=== PATIENT | male | born 1990 | race Caucasian/White ===

== ENCOUNTER 2016-12-02 19:27 | Emergency (ER) | payer SELFPAY ==
--- NOTE | 2016-12-02 19:48 | ER Document Report ---
ED Medical Screen (RME) - General Stated Complaint: FALL/ANKLE PAIN Time seen by provider: 19:41 Mode of Arrival: Ambulatory Information source: Patient Notes: 26-year-old male twisted his left ankle in a loose board this morning. He walked on it today but as the day increased he had more of a pinching pain and inability to walk on it. TRAVEL OUTSIDE OF THE [place] IN LAST 30 DAYS: No - Related Data Allergies/Adverse Reactions: trazodone Allergy (Verified 12/02/16 19:48) Past Medical History - Past Medical History Cardiac Medical History: Reports: Hx Hypertension Neurological Medical History: Reports: Hx Seizures Psychiatric Medical History: Reports: Hx Attention Deficit Hyperactivity Disorder, Hx Bipolar Disorder, Hx Depression - Immunizations Immunizations up to date: Yes Hx Diphtheria, Pertussis, Tetanus Vaccination: Yes - LAST DOSE AT AGE 19 Y.O.
[2016-12-02] MEDS ORDERED: HYDROCODONE/ACETAMINOPHEN 5-325 MG TABLET PO ONE (20:32)
--- NOTE | 2016-12-02 20:33 | ER Document Report ---
HPI - HPI Patient complains to provider of: ankle injury Onset: This morning Onset/Duration: Sudden Quality of pain: Achy Pain Level: 5 Context: Patient states he was running and twisted his left ankle this morning. Patient was wearing high top shoes at the time. Patient complains of continued ankle pain throughout the day. Associated Symptoms: Other - Left ankle pain Exacerbated by: Standing, Movement, Walking Relieved by: Denies Similar symptoms previously: Yes Recently seen / treated by doctor: No - ROS ROS below otherwise negative: Yes Systems Reviewed and Negative: Yes All other systems reviewed and negative - GASTROINTESTINAL Gastrointestinal: DENIES: Nausea, Patient vomiting - REPRODUCTIVE Reproductive: DENIES: : - MUSCULOSKELETAL Musculoskeletal: REPORTS: Extremity pain - Left ankle, Swelling - DERM Skin Color: Normal, [place] Skin Problems: None Past Medical History - General Information source: Patient - Social History Smoking Status: Current Every Day Smoker Frequency of alcohol use: None Drug Abuse: None Occupation: self-employed Lives with: Family Family History: Reviewed & Not Pertinent Patient has suicidal ideation: No Patient has homicidal ideation: No Neurological Medical History: Reports: Hx Seizures Psychiatric Medical History: Reports: Hx Attention Deficit Hyperactivity Disorder, Hx Bipolar Disorder, Hx Depression Surgical Hx: Negative - Immunizations Immunizations up to date: Yes Hx Diphtheria, Pertussis, Tetanus Vaccination: Yes - LAST DOSE AT AGE 19 Y.O. Vertical Provider Document - CONSTITUTIONAL Agree With Documented VS: Yes Exam Limitations: No Limitations General Appearance: WD/WN, No Apparent Distress - INFECTION CONTROL TRAVEL OUTSIDE OF THE [place] IN LAST 30 DAYS: No - HEENT HEENT: Atraumatic, Normocephalic - NECK Neck: Normal Inspection - RESPIRATORY Respiratory: No Respiratory Distress - CARDIOVASCULAR Pulses: Normal: Dorsalis pedis - BACK Back: Normal Inspection - MUSCULOSKELETAL/EXTREMETIES Musculoskeletal/Extremeties: MAEW, Tender - Left ankle tenderness over lateral malleolar area, Edema - 1+ left lateral malleolar area - NEURO Level of Consciousness: Awake, Alert, Appropriate Motor/Sensory: No Motor Deficit, No Sensory Deficit - DERM Integumentary: Warm, Dry Course - Diagnostic Test Radiology reviewed: Image reviewed, Reports reviewed Procedures - Immobilization Left Ankle Pre-Proc Neuro Vasc Exam: Normal Immobilizer type: Ankle stirrup Performed by: PCT Post-Proc Neuro Vasc Exam: Normal Alignment checked and good: Yes Discharge - Discharge Clinical Impression: Left ankle sprain Qualifiers: Encounter type: initial encounter Involved ligament of ankle: unspecified ligament Qualified Code(s): S93.402A - Sprain of unspecified ligament of left ankle, initial encounter Condition: Stable Disposition: HOME, SELF-CARE Instructions: Use of Crutches ([facility]), Oral Narcotic Medication ([facility]), Sprained Ankle ([facility]), Ankle Stirrup Splint ([facility]), Ice & Elevation ([facility]) Additional Instructions: Return immediately for any new or worsening symptoms Followup with your primary care provider, call tomorrow to make a followup appointment Weightbearing as tolerated Follow-up with orthopedic Dr. for any continued pain or problems Prescriptions: Hydrocodone/Acetaminophen [[place] 5-325 Tablet] 1 each PO Q4 PRN #15 tablet PRN Reason: Referrals: [facility] [Provider Group] - Follow up as needed [facility] [Provider Group] - Follow up as needed [facility] [Provider Group] - Follow up as needed
[2016-12-02 21:34] VITALS: BP 137/81
== END 2016-12-02 21:33 | disposition home or self-care (01) ==
LOC: ER 19:27
DX: S93.402A Sprain of unspecified ligament of left ankle, initial encounter (principal); X50.1XXA Overexertion from prolonged static or awkward postures, initial encounter; F17.200 Nicotine dependence, unspecified, uncomplicated
CPT/HCPCS: 99283; 73610; 73630; L1902

== ENCOUNTER 2017-05-14 17:48 | Emergency (ER) | payer OTHER ==
--- NOTE | 2017-05-14 18:28 | RADIOLOGY REPORT (SQ) ---
EXAM DESCRIPTION: KUB/ABDOMEN (SINGLE VIEW) COMPLETED DATE/TIME: 05/14/2017 6:18 pm REASON FOR STUDY: FOREIGN BODY COMPARISON: None. NUMBER OF VIEWS: One view. TECHNIQUE: Supine radiographic image of the abdomen acquired. LIMITATIONS: None. FINDINGS: BOWEL GAS PATTERN: Normal bowel gas pattern. No dilated loops. CALCIFICATIONS: No suspicious calcifications. SOFT TISSUES: No gross mass or suggestion of organomegaly. HARDWARE: None in the abdomen. BONES: No acute fracture. No worrisome bone lesions. OTHER: There are radiopaque densities overlying the right and left mid abdomen which could conceivabl y be external to the patient but could also represent ingested radiopaque foreign bodies. Clinical c orrelation is recommended. IMPRESSION: Nonspecific intestinal bowel gas pattern. Possible ingested radiopaque foreign bodies a s noted above TECHNICAL DOCUMENTATION: JOB ID: [id number]- All Rights Reserved
--- NOTE | 2017-05-14 18:28 | RADIOLOGY REPORT (SQ) ---
EXAM DESCRIPTION: CHEST SINGLE VIEW COMPLETED DATE/TIME: 05/14/2017 6:18 pm REASON FOR STUDY: foreign body COMPARISON: 08/25/2014 EXAM PARAMETERS: NUMBER OF VIEWS: One view. TECHNIQUE: Single frontal radiographic view of the chest acquired. RADIATION DOSE: NA LIMITATIONS: None. FINDINGS: LUNGS AND PLEURA: No opacities, masses or pneumothorax. No pleural effusion. MEDIASTINUM AND HILAR STRUCTURES: No masses. Contour normal. HEART AND VASCULAR STRUCTURES: Heart normal in size. Normal vasculature. BONES: No acute findings. HARDWARE: None in the chest. OTHER: No radiopaque foreign body is present. IMPRESSION: NO ACUTE RADIOGRAPHIC FINDING IN THE CHEST. TECHNICAL DOCUMENTATION: JOB ID: [id number]
--- NOTE | 2017-05-14 19:28 | ER Document Report ---
ED General - General Chief Complaint: Psych Problem Stated Complaint: POSSIBLE SWALLOWED FOREIGN OBJECT Time Seen by Provider: 05/14/17 18:38 Mode of Arrival: Medic Information source: Patient, Law Enforcement Notes: 26-year-old male who presents from senior care after ingesting metallic foreign bodies admits to abdominal pain. Patient admits to suicidal ideations. States he ingested metallic pieces often. He has been sent to [facility] for previous ingestion As he ingested to metallic weights from fishing supplies as well as an eyeglass TRAVEL OUTSIDE OF THE [place] IN LAST 30 DAYS: No - HPI Onset: Other - 1 PM Onset/Duration: Sudden Quality of pain: Achy Severity: Mild Pain Level: 1 Associated symptoms: Other Exacerbated by: Denies Relieved by: Denies Similar symptoms previously: Yes Recently seen / treated by doctor: Yes - Related Data Allergies/Adverse Reactions: trazodone Allergy (Verified 05/14/17 18:44) Past Medical History - Social History Smoking Status: Never Smoker Cigarette use (# per day): No Chew tobacco use (# tins/day): No Smoking Education Provided: No Family History: Reviewed & Not Pertinent - Past Medical History Cardiac Medical History: Reports: Hx Hypertension Neurological Medical History: Reports: Hx Seizures Psychiatric Medical History: Reports: Hx Attention Deficit Hyperactivity Disorder, Hx Bipolar Disorder, Hx Depression Surgical Hx: Negative - Immunizations Immunizations up to date: Yes Hx Diphtheria, Pertussis, Tetanus Vaccination: Yes - LAST DOSE AT AGE 19 Y.O. Review of Systems - Review of Systems Notes: REVIEW OF SYSTEMS: CONSTITUTIONAL : Denies fever, chills, or sweats. Denies recent illness. EENT: Denies eye, ear, throat, or mouth pain or symptoms. Denies nasal or sinus congestion or discharge. Denies throat, tongue, or mouth swelling or difficulty swallowing. CARDIOVASCULAR: Denies chest pain. Denies palpitations or racing or irregular heart beat. Denies ankle edema. RESPIRATORY: Denies cough, cold, or chest congestion. Denies shortness of breath, difficulty breathing, or wheezing. GASTROINTESTINAL: Abdominal pain GENITOURINARY: Denies difficulty urinating, painful urination, burning, frequency, blood in urine, or discharge. MUSCULOSKELETAL: Denies back or neck pain or stiffness. Denies joint pain or swelling. SKIN: Denies rash, lesions or sores. HEMATOLOGIC : Denies easy bruising or bleeding. LYMPHATIC: Denies swollen, enlarged glands. NEUROLOGICAL: Denies confusion or altered mental status. Denies passing out or loss of consciousness. Denies dizziness or lightheadedness. Denies headache. Denies weakness or paralysis or loss of use of either side. Denies problems with gait or speech. Denies sensory loss, numbness, or tingling. Denies seizures. PSYCHIATRIC: Denies anxiety or stress. Denies depression, suicidal ideation, or homicidal ideation. ALL OTHER SYSTEMS REVIEWED AND NEGATIVE. Dictation was performed using [employer] environment voice recognition software PHYSICAL EXAMINATION: GENERAL: Well-appearing, well-nourished and in no acute distress. HEAD: Atraumatic, normocephalic. EYES: Pupils equal round and reactive to light, extraocular movements intact, sclera anicteric, conjunctiva are normal. ENT: Nares patent, oropharynx clear without exudates. Moist mucous membranes. NECK: Normal range of motion, supple without lymphadenopathy LUNGS: Breath sounds clear to auscultation bilaterally and equal. No wheezes rales or rhonchi. HEART: Regular rate and rhythm without murmurs ABDOMEN: Soft, nontender, nondistended abdomen. No guarding, no rebound. No masses appreciated. Musculoskeletal: Normal range of motion, no pitting or edema. No cyanosis. NEUROLOGICAL: Cranial nerves grossly intact. Normal speech, normal gait. Normal sensory, motor exams PSYCH: Normal mood, normal affect. SKIN: Warm, Dry, normal turgor, no rashes or lesions noted. Physical Exam - Vital signs Vitals: Temp Pulse Resp BP Pulse Ox 97.5 F 71 18 139/95 H 99 05/14/17 18:01 05/14/17 18:01 05/14/17 18:01 05/14/17 18:01 05/14/17 18:01 Course - Re-evaluation Re-evalutation: 05/14/17 19:28 [facility] paged since patient was sent there before 05/14/17 19:54 [facility] specialist [facility] would be needed since it is past the stomach Will offer admission to Dr Massey 05/14/17 20:07 Surgeon will admit the patient for observation purposes I will IVC the patient - Vital Signs Vital signs: Temp Pulse Resp BP Pulse Ox 97.5 F 71 18 139/95 H 99 05/14/17 18:01 05/14/17 18:01 05/14/17 18:01 05/14/17 18:01 05/14/17 18:01 - Diagnostic Test Radiology reviewed: Image reviewed, Reports reviewed - Multiple foreign bodies noted and probable: Discharge - Discharge Clinical Impression: Swallowed foreign body Qualifiers: Encounter type: initial encounter Qualified Code(s): T18.9XXA - Foreign body of alimentary tract, part unspecified, initial encounter Abdominal pain Qualifiers: Abdominal location: unspecified location Qualified Code(s): R10.9 - Unspecified abdominal pain Condition: Stable Disposition: ADMITTED INPATIENT Admitting Provider: Surgicalist Unit Admitted: Surgical Floor
--- NOTE | 2017-05-14 20:24 | PDOC H&P ---
History of Present Illness Patient complains of: Status post foreign body ingestion at the 1:00 this afternoon. History of Present Illness: RIZWANA PRADO JR is a 26 year old male who is currently in alf. He ingested pieces of his eyeglasses at 1:00 this afternoon. He has been stable but complains of diffuse abdominal pain. No emesis. He has prior history of a foreign body ingestion in the past. He has thoughts of self-harm. He has a history of seizures but denies any past medical history. Past Medical History Cardiac Medical History: Reports: Hypertension Neurological Medical History: Reports: Seizures Psychiatric Medical History: Reports: Attention Deficit Hyperactivity Disorder, Bipolar Disorder, Depression Social History Smoking Status: Current Every Day Smoker Frequency of Alcohol Use: Rare Hx Recreational Drug Use: No Hx Prescription Drug Abuse: No Family History Family History: Reviewed & Not Pertinent Parental Family History Reviewed: No Children Family History Reviewed: No Sibling(s) Family History Reviewed.: No Medication/Allergy Home Medications: Cephalexin Monohydrate [Keflex 500 mg Capsule] 500 mg PO QID #40 capsule Hydrocodone/Acetaminophen [[place] 5-325 mg Tablet] 1 tab PO QID #15 tablet Phenytoin Sodium Extended 100 mg PO BID #40 capsule 01/13/16 Penicillin V Potassium [Penicillin Vk 500 mg Tablet] 500 mg PO BID #20 tablet Hydrocodone/Acetaminophen [[place] 5-325 Tablet] 1 each PO Q4 PRN #15 tablet 12/02 Allergies/Adverse Reactions: trazodone Allergy (Verified 05/14/17 18:44) Physical Exam Vital Signs: Temp Pulse Resp BP Pulse Ox 97.5 F 71 18 139/95 H 99 05/14/17 18:01 05/14/17 18:01 05/14/17 18:01 05/14/17 18:01 05/14/17 18:01 Intake & Output 05/13/17 05/14/17 05/15/17 06:59 06:59 06:59 Weight 108.862 kg General appearance: PRESENT: no acute distress, cooperative Neck exam: PRESENT: other - Supple with no tenderness and no masses Respiratory exam: PRESENT: clear to auscultation donna Cardiovascular exam: PRESENT: RRR GI/Abdominal exam: PRESENT: other - Very soft with no peritoneal signs and nondistended. Patient claims that he has tenderness with palpation in the left abdomen but I believe that the exam is unreliable and he has secondary gain intentions. Again abdomen is extremely soft with absolutely no peritoneal signs. Neurological exam: PRESENT: alert, awake, oriented to situation Psychiatric exam: PRESENT: flat affect, other - Clear, coherent speech. Patient does have thoughts of harming himself. Results Impressions: Chest X-Ray 05/14/17 00:00 IMPRESSION: NO ACUTE RADIOGRAPHIC FINDING IN THE CHEST. KUB X-Ray 05/14/17 00:00 IMPRESSION: Nonspecific intestinal bowel gas pattern. Possible ingested radiopaque foreign bodies as noted above Assessment & Plan - Diagnosis (1) Foreign body ingestion Qualifiers: Encounter type: initial encounter Qualified Code(s): T18.9XXA - Foreign body of alimentary tract, part unspecified, initial encounter Is this a current diagnosis for this admission?: YesPlan: KUB demonstrates multiple foreign bodies in the abdomen. Unable to determine where in the GI tract these foreign bodies are. They do not appear to be in the stomach. Likely they are in the colon. With the patient complaining of abdominal pain although I do not think he is reliable, will obtain a abdominal pelvic CT scan. If he has foreign body outside the confines of his bowel will plan exploratory laparotomy. Otherwise we will plan to admit the patient for observation and serial KUBs. Will have the patient be involuntarily committed with psychiatry consultation. Will obtain hospitalist consultation for his history of seizure disorder on no medications at this time.
[2017-05-14 21:10] LABS: ABSOLUTE MONOCYTES (AUTO) 0.9 10^3/uL (0.1-1.4); ABSOLUTE NEUT (AUTO) 6.3 10^3/uL (1.7-8.2); BASOPHILS % (AUTO) 0.5 % (0-2); EOSINOPHILS % (AUTO) 0.3 % (0-6); HEMATOCRIT 46.7 % (37.9-51.0); HEMOGLOBIN 15.3 g/dL (13.5-17.0); HGB HCT DIFFERENCE -0.8; MEAN CORPUSCULAR HEMOGLOBIN 30.5 pg (27.0-33.4); MEAN CORPUSCULAR HGB CONC 32.7 g/dL (32.0-36.0); MEAN CORPUSCULAR VOLUME 93 fl (80-97); MONOCYTES % (AUTO) 9.3 % (3-13); RED BLOOD COUNT 5.02 10^6/uL (4.35-5.55); RED CELL DISTRIBUTION WIDTH 12.9 % (11.5-14.0); SEGMENTED NEUTROPHILS % (AUTO) 67.9 % (42-78); WHITE BLOOD COUNT 9.2 10^3/uL (4.0-10.5)
[2017-05-14 21:27] LABS: ALANINE AMINOTRANSFERASE 41 U/L (21-72); ALBUMIN 4.5 g/dL (3.5-5.0); ALKALINE PHOSPHATASE 116 U/L (38-126); ANION GAP 15 (5-19); ASPARTATE AMINO TRANSFERASE 24 U/L (17-59); BILIRUBIN,DIRECT 0.3 mg/dL (0.0-0.4); BILIRUBIN,TOTAL 0.9 mg/dL (0.2-1.3); BLOOD UREA NITROGEN 14 mg/dL (7-20); CALCIUM 10.1 mg/dL (8.4-10.2); CARBON DIOXIDE 22 mmol/L (22-30); CHLORIDE 104 mmol/L (98-107); CREATININE RESULT 0.81 mg/dL (0.52-1.25); GLUCOSE 91 mg/dL (75-110); POTASSIUM 4.2 mmol/L (3.6-5.0); SODIUM 140.7 mmol/L (137-145)
[2017-05-14 21:28] LABS: ALCOHOL < 10 mg/dL (NONE DETECTED)
--- NOTE | 2017-05-14 21:44 | RADIOLOGY REPORT (SQ) ---
EXAM DESCRIPTION: CT ABD/PELVIS NO ORAL OR IV COMPLETED DATE/TIME: 05/14/2017 9:09 pm REASON FOR STUDY: foreign body ingestion COMPARISON: None. TECHNIQUE: CT scan of the abdomen and pelvis performed without intravenous or oral contrast. Images reviewed with lung, soft tissue, and bone windows. Reconstructed coronal and sagittal MPR images revi ewed. All images stored on PACS. All CT scanners at this facility use dose modulation, iterative reconstruction, and/or weight based d osing when appropriate to reduce radiation dose to as low as reasonably achievable (ALARA). [facility]: Dose Right [facility]: CareDose [facility]: Dose Right [facility]: Teradose 4D [facility]: Smart [employer] RADIATION DOSE: Up-to-date CT equipment and radiation dose reduction techniques were employed. CTDIv ol: 19.1 mGy. DLP: 1094 mGy-cm.mGy. LIMITATIONS: None. FINDINGS: LOWER CHEST: No significant findings. No nodules or infiltrates. NON-CONTRASTED LIVER, SPLEEN, ADRENALS: Evaluation limited by lack of IV contrast. No identified sign ificant masses. PANCREAS: No masses. No peripancreatic inflammatory changes. GALLBLADDER: No identified stones by CT criteria. No inflammatory changes to suggest cholecystitis. RIGHT KIDNEY AND URETER: No suspicious masses. Assessment limited by lack of IV contrast. No signif icant calcifications. No hydronephrosis or hydroureter. LEFT KIDNEY AND URETER: No suspicious masses. Assessment limited by lack of IV contrast. No signifi cant calcifications. No hydronephrosis or hydroureter. AORTA AND RETROPERITONEUM: No aneurysm. No retroperitoneal masses or adenopathy. BOWEL AND PERITONEAL CAVITY: Ingested radiopaque foreign bodies are identified throughout the GI trac t. There are components within the stomach, small bowel, and colon. APPENDIX: Not identified PELVIS, BLADDER, AND ABDOMINAL WALL:No abnormal masses. No free fluid. Bladder normal. BONES: No significant findings. OTHER: No other significant finding. IMPRESSION: Ingested radiopaque foreign bodies are identified throughout the GI tract. Other findin gs as noted above TECHNICAL DOCUMENTATION: JOB ID: [id number] Quality ID # [id number]: Final reports with documentation of one or more dose reduction techniques (e.g., Au tomated exposure control, adjustment of the mA and/or kV according to patient size, use of iterative reconstruction technique) 2010 [employer]- All Rights Reserved
[2017-05-14 21:53] LABS: URINE BARBITURATES SCREEN NEGATIVE; URINE METHADONE SCREEN NEGATIVE; URINE OPIATES LOW NEGATIVE; URINE PHENCYCLIDINE SCREEN NEGATIVE
[2017-05-14 21:56] LABS: APPEARANCE,URINE SLIGHTLY-CLOUDY; BILIRUBIN,URINE NEGATIVE (NEGATIVE); GLUCOSE, URINE NEGATIVE (NEGATIVE); KETONES,URINE 80 mg/dL (NEGATIVE); LEUKOCYTE ESTERASE,URINE NEGATIVE (NEGATIVE); NITRITE,URINE NEGATIVE (NEGATIVE); PROTEIN,URINE 30 mg/dL (NEGATIVE); URINE SPECIFIC GRAVITY 1.034
--- NOTE | 2017-05-14 22:19 | PDOC PROGRESS REPORT ---
Physical Exam Vital Signs: Temp Pulse Resp BP Pulse Ox 97.5 F 90 20 136/80 H 99 05/14/17 18:01 05/14/17 21:07 05/14/17 21:07 05/14/17 21:07 05/14/17 21:07 Results Laboratory Results: 05/14/17 20:50 05/14/17 20:50 05/14/17 05/14/17 05/14/17 20:50 20:50 21:15 WBC 9.2 RBC 5.02 Hgb 15.3 Hct 46.7 MCV 93 MCH 30.5 MCHC 32.7 RDW 12.9 Plt Count 271 Seg Neutrophils % 67.9 Lymphocytes % 22.0 Monocytes % 9.3 Eosinophils % 0.3 Basophils % 0.5 Absolute Neutrophils 6.3 Absolute Lymphocytes 2.0 Absolute Monocytes 0.9 Absolute Eosinophils 0.0 Absolute Basophils 0.0 Sodium 140.7 Potassium 4.2 Chloride 104 Carbon Dioxide 22 Anion Gap 15 BUN 14 Creatinine 0.81 Est GFR ( Amer) > 60 Est GFR (Non-Af Amer) > 60 Glucose 91 Calcium 10.1 Total Bilirubin 0.9 AST 24 ALT 41 Alkaline Phosphatase 116 Total Protein 8.0 Albumin 4.5 Urine Color VIANEY Urine Appearance SLIGHTLY-CLOUDY Urine pH 6.0 Ur Specific [place] 1.034 Urine Protein 30 H Urine Glucose (UA) NEGATIVE Urine Ketones 80 H Urine Blood NEGATIVE Urine Nitrite NEGATIVE Ur Leukocyte Esterase NEGATIVE Urine WBC (Auto) 0 Urine RBC (Auto) 3 Impressions: Chest X-Ray 05/14/17 00:00 IMPRESSION: NO ACUTE RADIOGRAPHIC FINDING IN THE CHEST. KUB X-Ray 05/14/17 00:00 IMPRESSION: Nonspecific intestinal bowel gas pattern. Possible ingested radiopaque foreign bodies as noted above Abdomen/Pelvis CT 05/14/17 20:14 IMPRESSION: Ingested radiopaque foreign bodies are identified throughout the GI tract. Other findings as noted above Assessment & Plan - Diagnosis (1) Foreign body ingestion Qualifiers: Encounter type: initial encounter Qualified Code(s): T18.9XXA - Foreign body of alimentary tract, part unspecified, initial encounter Is this a current diagnosis for this admission?: YesPlan: CT scan demonstrates foreign bodies within the bowel mostly in the colon. There is no evidence of bowel perforation. However the lens from the eyeglass that he swallowed is stuck in his stomach. I believe that all of the foreign bodies will eventually pass without sequelae however the lens is too large to pass out of the stomach. Unfortunately we did not have any gastroenterology coverage at this hospital for the next several days. I do not have the expertise to remove such a large foreign body endoscopically. I have discussed with the ER physician concerning transfer to a center where gastroenterology is available to remove gastric foreign body.
--- NOTE | 2017-05-15 03:57 | EKG REPORT ---
SEVERITY:- OTHERWISE NORMAL ECG - SINUS ARRHYTHMIA, RATE [id number] : Confirmed by: Vonnie Hernandez MD 15-May-2017 03:55:46
--- NOTE | 2017-05-15 11:36 | ER Document Report ---
Doctor's Note Notes: 05/15/17 11:35 This 26-year-old male patient is waiting to go to [facility] for endoscopic removal of gastric foreign body. I was given the power forms to fill out, there was no receiving doctors name pleasant and none could be found looking through the medical record. The nurse called the receiving facility and got the name of Dr. Umang Roth who is the accepting. This name was placed on the EMTALA form. Phone call was made to the on-call surgeon at [facility] today, to confirm that he does not do endoscopic foreign body removal from the stomach. 05/15/17 12:41 I was just told by the nursing staff that the patient eloped. He came to the emergency room in custody of law enforcement. He was released from custody when it was determined that he would be going for further care so that the [facility] would not be responsible for the bill. When he realized that he was no longer in custody, he eloped.
[2017-05-15 12:00] VITALS: BP 138/86
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
== END 2017-05-15 12:33 | disposition left against medical advice (07) ==
LOC: ER 17:48 → EH 20:14 → UNDOADMIN 20:14 → UNDODISIN 05-15 12:33
DX: T18.9XXA Foreign body of alimentary tract, part unspecified, initial encounter (principal); F50.89 Other specified eating disorder; R10.9 Unspecified abdominal pain; F17.200 Nicotine dependence, unspecified, uncomplicated; Y92.149 Unspecified place in prison as the place of occurrence of the external cause; R45.851 Suicidal ideations
CPT/HCPCS: 36415; 71010; 74000; 74176; 80053; 80307; 81001; 85025; 93005; 93010; 99285

== ENCOUNTER 2017-05-15 16:05 | Emergency (ER) | payer SELFPAY ==
--- NOTE | 2017-05-15 17:50 | ER Document Report ---
ED Medical Screen (RME) - General Information source: Patient TRAVEL OUTSIDE OF THE U.S. IN LAST 30 DAYS: No <MIKA MCPHERSON - Last Filed: 05/15/17 17:52> <CA RAM - Last Filed: 05/16/17 14:51> - General Chief Complaint: Abdominal Pain Stated Complaint: SWOLLOWED GLASS/PAIN Time Seen by Provider: 05/15/17 17:34 Notes: Patient is a 26 year old male presenting to the emergency department for swallowing eye glasses yesterday at 13:00. Patient has ingested things several times. Patient has had surgery to remove a spork (spoon/fork) and a pencil. Patient was seen earlier and was going to be transferred to [facility] and left after the clinical nurse manager left him. Patient states he left because his was at home and she has multiple sclerosis. Patient was released by the [facility]'s deputy that morning. Patient is back to get transfer again to have the eye glasses removed. Patient states his case management specialist will come and take his home if he gets transferred. Patient states he will not elope again. Patient is allergic to trazodone. (MIKA MCPHERSON) - Related Data Allergies/Adverse Reactions: trazodone Allergy (Verified 05/15/17 16:30) Past Medical History - Past Medical History Cardiac Medical History: Reports: Hx Hypertension Neurological Medical History: Reports: Hx Seizures Renal/ Medical History: Denies: Hx Peritoneal Dialysis Psychiatric Medical History: Reports: Hx Attention Deficit Hyperactivity Disorder, Hx Bipolar Disorder, Hx Depression - Immunizations Immunizations up to date: Yes Hx Diphtheria, Pertussis, Tetanus Vaccination: Yes - LAST DOSE AT AGE 19 Y.O. <MIKA MCPHERSON - Last Filed: 05/15/17 17:52> Physical Exam <MIKA MCPHERSON - Last Filed: 05/15/17 17:52> <CA RAM - Last Filed: 05/16/17 14:51> - Vital signs Vitals: Temp Pulse Resp BP Pulse Ox 98.3 F 114 H 20 135/91 H 96 05/15/17 16:28 05/15/17 16:28 05/15/17 16:28 05/15/17 16:28 05/15/17 16:28 - Notes Notes: GENERAL: alert, no acute distress. LUNG: No respiratory distress. HEART: Regular rate and rhythm. (VIDAMIKA) Course <MIKA MCPHERSON - Last Filed: 05/15/17 17:52> - Laboratory Result Diagrams: 05/15/17 18:10 05/15/17 18:10 <CA RAM - Last Filed: 05/16/17 14:51> - Re-evaluation Re-evalutation: 05/15/17 17:50 Patient was brought in by [facility] department yesterday after ingesting eyeglasses. Dr. Disla ED and initially thought evaluated the patient is note states he contacted Dr. Mckinnon after CT scan showed it and that he was in place the patient on IVC. I read Dr. agarwal note who basically stated that he was unable to do this without GI here and recommended transfer to [facility]. I do not see anywhere where the patient was actually put on IVC paperwork and he denies that as well he eloped after the product managent intern's department released in custody. He is back now wanting transfer to have the foreign object removed. Below is copied and pasted note from the surgeon: CT scan demonstrates foreign bodies within the bowel mostly in the colon. There is no evidence of bowel perforation. However the lens from the eyeglass that he swallowed is stuck in his stomach. I believe that all of the foreign bodies will eventually pass without sequelae however the lens is too large to pass out of the stomach. Unfortunately we did not have any gastroenterology coverage at this hospital for the next several days. I do not have the expertise to remove such a large foreign body endoscopically. I have discussed with the ER physician concerning transfer to a center where gastroenterology is available to remove gastric foreign body. Suicidal homicidal denies any chest pain abdominal pain nausea vomiting diarrhea fevers chills or change in appetite. He said pencil and I spoke removed previously [facility] when he was 20 has a history of a seizure disorder off of his medications for years and denies any other current complaints. He is not actively suicidal homicidal. He is going to have basic labs repeated and transferred to the back for arrangements to be made for transfer to a facility for endoscopic removal. 05/15/17 17:52 I personally performed the services described in the documentation reviewed the documentation recorded by my scribe in my presence and it accurately and completely records my words and actions (CA RAM) - Vital Signs Vital signs: Temp Pulse Resp BP Pulse Ox 97.7 F 63 20 107/65 96 05/16/17 04:48 05/16/17 04:48 05/16/17 04:48 05/16/17 04:48 05/16/17 04:48 Doctor's Discharge <MIKA MCPHERSON - Last Filed: 05/15/17 17:52> <CA RAM - Last Filed: 05/16/17 14:51> - Discharge Clinical Impression: Foreign body ingestion, Abdominal pain Condition: Stable Disposition: AGAINST MEDICAL ADVICE Scribe Documentation - Scribe Written by Scribe:: Rodney Lea, 05/15/2017 1800 acting as scribe for :: Travis <MIKA MCPHERSON - Last Filed: 05/15/17 17:52>
[2017-05-15 18:30] LABS: ABSOLUTE EOSINOPHILS # (AUTO) 0.1 10^3/uL (0.0-0.6); ABSOLUTE LYMPHOCYTES (AUTO) 2.1 10^3/uL (0.5-4.7); ABSOLUTE MONOCYTES (AUTO) 0.9 10^3/uL (0.1-1.4); ABSOLUTE NEUT (AUTO) 4.7 10^3/uL (1.7-8.2); BASOPHILS % (AUTO) 0.5 % (0-2); EOSINOPHILS % (AUTO) 0.8 % (0-6); HEMATOCRIT 45.9 % (37.9-51.0); HEMOGLOBIN 15.7 g/dL (13.5-17.0); HGB HCT DIFFERENCE 1.2; LYMPHOCYTES % (AUTO) 26.9 % (13-45); MEAN CORPUSCULAR HGB CONC 34.1 g/dL (32.0-36.0); MEAN CORPUSCULAR VOLUME 91 fl (80-97); MONOCYTES % (AUTO) 11.4 % (3-13); RED BLOOD COUNT 5.05 10^6/uL (4.35-5.55); RED CELL DISTRIBUTION WIDTH 12.8 % (11.5-14.0); SEGMENTED NEUTROPHILS % (AUTO) 60.4 % (42-78); WHITE BLOOD COUNT 7.7 10^3/uL (4.0-10.5)
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
[2017-05-15 18:52] LABS: ANION GAP 15 (5-19); BLOOD UREA NITROGEN 17 mg/dL (7-20); CALCIUM 9.7 mg/dL (8.4-10.2); CARBON DIOXIDE 25 mmol/L (22-30); CHLORIDE 104 mmol/L (98-107); GLUCOSE 90 mg/dL (75-110); POTASSIUM 4.1 mmol/L (3.6-5.0); SODIUM 144.2 mmol/L (137-145)
--- NOTE | 2017-05-15 18:52 | ER Document Report ---
ED General - General Chief Complaint: Abdominal Pain Stated Complaint: SWOLLOWED GLASS/PAIN Time Seen by Provider: 05/15/17 17:34 Mode of Arrival: Ambulatory Information source: Patient Notes: 26-year-old male who swallowed eyeglasses paperclips and weights from a fishing line presents with complaints of abd pain. Patient was supposed to the [facility] yesterday but decided to elope this morning while he was waiting for transport. TRAVEL OUTSIDE OF THE U.S. IN LAST 30 DAYS: No - HPI Onset: Yesterday Onset/Duration: Sudden Quality of pain: Achy Severity: Mild Pain Level: 1 Associated symptoms: Nausea, Other Exacerbated by: Denies Relieved by: Denies Similar symptoms previously: Yes Recently seen / treated by doctor: Yes - Related Data Allergies/Adverse Reactions: trazodone Allergy (Verified 05/15/17 16:30) Past Medical History - General Information source: Patient - Social History Smoking Status: Current Every Day Smoker Cigarette use (# per day): Yes Chew tobacco use (# tins/day): No Smoking Education Provided: No Frequency of alcohol use: None Drug Abuse: None Family History: Reviewed & Not Pertinent Patient has suicidal ideation: No Patient has homicidal ideation: No - Past Medical History Cardiac Medical History: Reports: Hx Hypertension Neurological Medical History: Reports: Hx Seizures Renal/ Medical History: Denies: Hx Peritoneal Dialysis Psychiatric Medical History: Reports: Hx Attention Deficit Hyperactivity Disorder, Hx Bipolar Disorder, Hx Depression - Immunizations Immunizations up to date: Yes Hx Diphtheria, Pertussis, Tetanus Vaccination: Yes - LAST DOSE AT AGE 19 Y.O. Review of Systems - Review of Systems Notes: REVIEW OF SYSTEMS: CONSTITUTIONAL : Denies fever, chills, or sweats. Denies recent illness. EENT: Denies eye, ear, throat, or mouth pain or symptoms. Denies nasal or sinus congestion or discharge. Denies throat, tongue, or mouth swelling or difficulty swallowing. CARDIOVASCULAR: Denies chest pain. Denies palpitations or racing or irregular heart beat. Denies ankle edema. RESPIRATORY: Denies cough, cold, or chest congestion. Denies shortness of breath, difficulty breathing, or wheezing. GASTROINTESTINAL: Abdominal pain nausea GENITOURINARY: Denies difficulty urinating, painful urination, burning, frequency, blood in urine, or discharge. MUSCULOSKELETAL: Denies back or neck pain or stiffness. Denies joint pain or swelling. SKIN: Denies rash, lesions or sores. HEMATOLOGIC : Denies easy bruising or bleeding. LYMPHATIC: Denies swollen, enlarged glands. NEUROLOGICAL: Denies confusion or altered mental status. Denies passing out or loss of consciousness. Denies dizziness or lightheadedness. Denies headache. Denies weakness or paralysis or loss of use of either side. Denies problems with gait or speech. Denies sensory loss, numbness, or tingling. Denies seizures. PSYCHIATRIC: Denies anxiety or stress. Denies depression, suicidal ideation, or homicidal ideation. ALL OTHER SYSTEMS REVIEWED AND NEGATIVE. Dictation was performed using [employer] voice recognition software PHYSICAL EXAMINATION: GENERAL: Well-appearing, well-nourished and in no acute distress. HEAD: Atraumatic, normocephalic. EYES: Pupils equal round and reactive to light, extraocular movements intact, sclera anicteric, conjunctiva are normal. ENT: Nares patent, oropharynx clear without exudates. Moist mucous membranes. NECK: Normal range of motion, supple without lymphadenopathy LUNGS: Breath sounds clear to auscultation bilaterally and equal. No wheezes rales or rhonchi. HEART: Regular rate and rhythm without murmurs ABDOMEN: Soft, nontender, nondistended abdomen. No guarding, no rebound. No masses appreciated. Musculoskeletal: Normal range of motion, no pitting or edema. No cyanosis. NEUROLOGICAL: Cranial nerves grossly intact. Normal speech, normal gait. Normal sensory, motor exams PSYCH: Normal mood, normal affect. SKIN: Warm, Dry, normal turgor, no rashes or lesions noted. Physical Exam - Vital signs Vitals: Temp Pulse Resp BP Pulse Ox 98.3 F 114 H 20 135/91 H 96 05/15/17 16:28 05/15/17 16:28 05/15/17 16:28 05/15/17 16:28 05/15/17 16:28 Course - Re-evaluation Re-evalutation: 05/15/17 18:54 There is no movement of metallic foreign bodies, CT is pending to evaluate for lens 05/15/17 20:02 lens is still in stomach [facility] paged 05/15/17 20:27 05/15/17 20:28 Dr Alvarado will accept at [place] on behalf of Dr Ingram 05/15/17 20:29 - Vital Signs Vital signs: Temp Pulse Resp BP Pulse Ox 98.3 F 114 H 20 135/91 H 96 05/15/17 16:28 05/15/17 16:28 05/15/17 16:28 05/15/17 16:28 05/15/17 16:28 - Laboratory Result Diagrams: 05/15/17 18:10 05/15/17 18:10 - Diagnostic Test Radiology reviewed: Image reviewed, Reports reviewed Discharge - Discharge Clinical Impression: Foreign body ingestion Qualifiers: Encounter type: initial encounter Qualified Code(s): T18.9XXA - Foreign body of alimentary tract, part unspecified, initial encounter Abdominal pain Qualifiers: Abdominal location: unspecified location Qualified Code(s): R10.9 - Unspecified abdominal pain Condition: Stable Disposition: PENDING SALE TO [facility]
--- NOTE | 2017-05-15 19:54 | RADIOLOGY REPORT (SQ) ---
EXAM DESCRIPTION: CT ABD/PELVIS NO ORAL OR IV COMPLETED DATE/TIME: 05/15/2017 7:13 pm REASON FOR STUDY: eye glass lense in stomach COMPARISON: 05/14/2017 TECHNIQUE: CT scan of the abdomen and pelvis performed without intravenous or oral contrast. Images reviewed with lung, soft tissue, and bone windows. Reconstructed coronal and sagittal MPR images revi ewed. All images stored on PACS. All CT scanners at this facility use dose modulation, iterative reconstruction, and/or weight based d osing when appropriate to reduce radiation dose to as low as reasonably achievable (ALARA). [facility]: Dose Right [facility]: CareDose [facility]: Dose Right [facility]: Teradose 4D [facility]: Smart WireOver RADIATION DOSE: Up-to-date CT equipment and radiation dose reduction techniques were employed. CTDIv ol: 14.2 mGy. DLP: 830 mGy-cm.mGy. LIMITATIONS: None. FINDINGS: LOWER CHEST: No significant findings. No nodules or infiltrates. NON-CONTRASTED LIVER, SPLEEN, ADRENALS: Evaluation limited by lack of IV contrast. No identified sign ificant masses. PANCREAS: No masses. No peripancreatic inflammatory changes. GALLBLADDER: No identified stones by CT criteria. No inflammatory changes to suggest cholecystitis. RIGHT KIDNEY AND URETER: No suspicious masses. Assessment limited by lack of IV contrast. No signif icant calcifications. No hydronephrosis or hydroureter. LEFT KIDNEY AND URETER: No suspicious masses. Assessment limited by lack of IV contrast. No signifi cant calcifications. No hydronephrosis or hydroureter. AORTA AND RETROPERITONEUM: No aneurysm. No retroperitoneal masses or adenopathy. BOWEL AND PERITONEAL CAVITY: One of the radiopaque foreign bodies remains present in the stomach. T he others that were seen previously in the jejunal location have moved into the ascending colon. The ascending colon foreign body seen on the prior exam is again noted in a slightly more distal positio n. No obvious masses or inflammatory changes. No free fluid. APPENDIX: Normal. PELVIS, BLADDER, AND ABDOMINAL WALL:No abnormal masses. No free fluid. Bladder normal. BONES: No significant findings. OTHER: No other significant finding. IMPRESSION: One of the radiopaque foreign bodies remains present in the stomach. The others that we re seen previously in the jejunal location have moved into the ascending colon. The ascending colon foreign body seen on the prior exam is again noted in a slightly more distal position. No obvious in flammatory changes. TECHNICAL DOCUMENTATION: JOB ID: [id number] Quality ID # [id number]: Final reports with documentation of one or more dose reduction techniques (e.g., Au tomated exposure control, adjustment of the mA and/or kV according to patient size, use of iterative reconstruction technique) 2010 [employer]- All Rights Reserved
[2017-05-16 04:59] VITALS: BP 107/65
--- NOTE | 2017-05-16 05:23 | ER Document Report ---
Doctor's Note Notes: 05/16/17 05:21 The patient has chosen to leave the facility against medical advice. The relevant issues have been reviewed and discussed with the patient and family at the bedside. At the time of this assessment there is no indication for involuntary commitment. The patient is alert, oriented, and able to express clearly their reasoning for not wanting to remain in the emergency department for further treatment. The patient is not clinically psychotic, intoxicated, and denies and suicidal ideation. Differential or suspected diagnoses based on medical screening exam: Foreign body in the stomach/small intestines The patient is aware of the concerning diagnoses and acknowledges understanding of the reasons for the following recommendations: Transfer to [facility] for definitive management The following recommendations/services were offered and refused: Transfer to [facility] for definitive management The following risks were explained: , permanent disability, loss of function, complication of surgical course, bowel perforation, bowel obstruction , bowel ischemia Clinical impression: Patient is competent to make decisions regarding the medical that is being offered.
== END 2017-05-16 05:20 | disposition left against medical advice (07) ==
LOC: ER 16:05
DX: T18.9XXA Foreign body of alimentary tract, part unspecified, initial encounter (principal); R10.9 Unspecified abdominal pain; X58.XXXA Exposure to other specified factors, initial encounter; F17.210 Nicotine dependence, cigarettes, uncomplicated; I10 Essential (primary) hypertension
CPT/HCPCS: 36415; 74000; 74176; 80048; 85025; 99284

== ENCOUNTER 2018-08-20 15:14 | Emergency (ER) | payer SELFPAY ==
[2018-08-20 15:20] VITALS: BP 135/88
[2018-08-20] MEDS ORDERED: CEPHALEXIN 500 MG CAPSULE PO ONE (15:57)
--- NOTE | 2018-08-20 15:59 | ER Document Report ---
HPI - HPI Patient complains to provider of: Splinter Onset: Yesterday Onset/Duration: Sudden Pain Level: 1 Context: Patient states that he was carrying a board that slipped and a splinter went in his thumb. Patient states he was unsuccessful in removing the splinter at home. Patient's tetanus immunization is currently up-to-date. Exacerbated by: Movement Relieved by: Denies Similar symptoms previously: Yes Recently seen / treated by doctor: No - ROS ROS below otherwise negative: Yes Systems Reviewed and Negative: Yes All other systems reviewed and negative - CONSTITUTIONAL Constitutional: DENIES: Fever - REPRODUCTIVE Reproductive: DENIES: : - MUSCULOSKELETAL Musculoskeletal: REPORTS: Extremity pain. DENIES: Swelling - DERM Skin Problems: Puncture Wound Past Medical History - General Information source: Patient - Social History Smoking Status: Current Every Day Smoker Smoking Education Provided: Yes Frequency of alcohol use: None Drug Abuse: None Occupation: [employer] Lives with: Family Family History: Reviewed & Not Pertinent - Past Medical History Cardiac Medical History: Reports: Hx Hypertension Neurological Medical History: Reports: Hx Seizures Renal/ Medical History: Denies: Hx Peritoneal Dialysis Psychiatric Medical History: Reports: Hx Attention Deficit Hyperactivity Disorder, Hx Bipolar Disorder, Hx Depression Surgical Hx: Negative - Immunizations Immunizations up to date: Yes Hx Diphtheria, Pertussis, Tetanus Vaccination: Yes - LAST DOSE AT AGE 19 Y.O. Vertical Provider Document - CONSTITUTIONAL Agree With Documented VS: Yes Exam Limitations: No Limitations General Appearance: WD/WN, No Apparent Distress - INFECTION CONTROL TRAVEL OUTSIDE OF THE U.S. IN LAST 30 DAYS: No - HEENT HEENT: Atraumatic, Normocephalic - NECK Neck: Normal Inspection - RESPIRATORY Respiratory: No Respiratory Distress - CARDIOVASCULAR Pulses: Normal: Radial - MUSCULOSKELETAL/EXTREMETIES Musculoskeletal/Extremeties: MAEW, FROM - NEURO Level of Consciousness: Awake, Alert, Appropriate Motor/Sensory: No Motor Deficit - DERM Integumentary: Warm, Dry Notes: visible FB to palmar surface of the right thumb distal phalanx, no surrounding erythema Course - Vital Signs Vital signs: Temp Pulse Resp BP Pulse Ox 97.6 F 93 18 135/88 H 98 08/20/18 15:19 08/20/18 15:19 08/20/18 15:19 08/20/18 15:19 08/20/18 15:19 Procedures - Incision and Drainage Right Thumb Type: Simple Anesthetic type: 1% Lidocaine Blade size: 11 I&D procedure: Betadine prep applied Incision Method: Incision made by scalpel Amount/type of drainage: Scant amount of purulent drainage removed along with wood splinter FB Discharge - Discharge Clinical Impression: Splinter in skin Condition: Stable Disposition: HOME, SELF-CARE Instructions: Cephalexin ([facility]), Removal of Subcutaneous Foreign Object ([facility]) Additional Instructions: Return immediately for any new or worsening symptoms Followup with your primary care provider, call tomorrow to make a followup appointment Monitor for any signs of infection, return for any new or worsening symptoms Prescriptions: Cephalexin Monohydrate [Keflex 500 mg Capsule] 500 mg PO Q6H 5 Days capsule Forms: Smoking Cessation Education Referrals: MARIBEL GONGORA DO [ACTIVE STAFF] - Follow up as needed
== END 2018-08-20 16:43 | disposition home or self-care (01) ==
LOC: ER 15:14
DX: S60.351A Superficial foreign body of right thumb, initial encounter (principal); W45.8XXA Other foreign body or object entering through skin, initial encounter; F17.200 Nicotine dependence, unspecified, uncomplicated; I10 Essential (primary) hypertension
CPT/HCPCS: 99283

== ENCOUNTER 2018-09-29 18:30 | Emergency (ER) | payer SELFPAY ==
--- NOTE | 2018-09-29 18:48 | ER Document Report ---
ED General - General Chief Complaint: Probable Seizure Stated Complaint: POSSIBLE SEIZURE Time Seen by Provider: 09/29/18 18:46 Notes: Patient is a 28-year-old male with history of seizure disorder that presents to the emergency department for chief complaint of seizure. Patient states that he was at a restaurant, about 30 minutes prior to ED arrival, where he had a brief generalized tonic-clonic seizure, that was witnessed, by friends, is entirely sure how long it lasted, but does not believe it was longer than a minute or 2. EMS brought him to the emergency department, he was not seizing on their arrival. He did not have any other further medications given. States he was on Dilantin, prescribed several years ago, he has not been on the medication since then, and has not had any follow-up. He states his last seizure was over a year ago. He does not have a primary care physician at this time. At this time he denies having any headache, nausea, vomiting, denies biting his tongue, or having any urinary or bowel incontinence. Past Medical History: Depression, ADHD, autism, seizure disorder Past Surgical History: Denies surgical history Social History: Admits to smoking cigarettes, denies alcohol or drug use. Family History: Reviewed and noncontributory for presenting illness Allergies: Reviewed, see documented allergy list. REVIEW OF SYSTEMS: Other than noted above, the 12 point review of systems was reviewed with the patient and were negative, all pertinent findings are included in the HPI. PHYSICAL EXAMINATION: Vital signs reviewed, nursing noted reviewed. GENERAL: Well-appearing, well-nourished and in no acute distress. HEAD: Atraumatic, normocephalic. EYES: Eyes appear normal, extraocular movements intact, sclera anicteric, conjunctiva are normal. ENT: nares patent, oropharynx clear without exudates. Moist mucous membranes. No tongue lacerations NECK: Normal range of motion, supple without lymphadenopathy LUNGS: Breath sounds clear to auscultation bilaterally and equal. No wheezes rales or rhonchi. HEART: Regular rate and rhythm without murmurs ABDOMEN: Soft, nontender, normoactive bowel sounds. No rebound, guarding, or rigidity. No masses appreciated. EXTREMITIES: Nontender, good range of motion, no pitting or edema. NEUROLOGICAL: No focal neurological deficits. Moves all extremities spontaneously Motor and sensory grossly intact on exam. PSYCH: Normal mood, normal affect. SKIN: Warm, Dry, normal turgor, no rashes or lesions noted on exposed skin TRAVEL OUTSIDE OF THE [place] IN LAST 30 DAYS: No - Related Data Allergies/Adverse Reactions: No Known Allergies Allergy (Unverified 09/29/18 18:35) Past Medical History - Social History Smoking Status: Unknown if Ever Smoked Family History: Reviewed & Not Pertinent Patient has suicidal ideation: No Patient has homicidal ideation: No - Past Medical History Cardiac Medical History: Reports: Hx Hypertension Neurological Medical History: Reports: Hx Seizures Renal/ Medical History: Denies: Hx Peritoneal Dialysis Psychiatric Medical History: Reports: Hx Attention Deficit Hyperactivity Disorder, Hx Bipolar Disorder, Hx Depression - Immunizations Immunizations up to date: Yes Hx Diphtheria, Pertussis, Tetanus Vaccination: Yes - LAST DOSE AT AGE 19 Y.O. Course - Re-evaluation Re-evalutation: Patient seen and examined vital signs reviewed. Laboratory data and imaging were ordered as appropriate for the patient's presenting symptoms and complaint, with consideration of any critical or life threatening conditions that may be associated with their obtained history and exam as noted above. Patient was treated with IV Keppra 1000 mg, and IV normal saline Results were reviewed when available and demonstrated unremarkable CBC, and CMP The patient was re-evaluated and was stable, no further seizure activity, patient was feeling better Evaluation was most consistent with seizure, will discharge the patient home on 500 mg of Keppra twice daily, will refer him to case management, for follow-up and help schedule with a primary care physician for continued prescription for this medication. Patient agreeable. Results were discussed with the patient at this point, after careful consideration I feel that that patient can be discharged from the emergency department, the patient was educated treatments and reasons to return to the emergency department based on their presumed diagnosis as noted above, they were advised to followup with a primary care physician in 2-3 days. Patient was agreeable to plan of care. *Note is created using voice recognition software and may contain spelling, syntax or grammatical errors. Laboratory 09/29/18 09/29/18 18:36 18:36 WBC 9.3 RBC 4.76 Hgb 15.2 Hct 42.6 MCV 89 MCH 32.0 MCHC 35.8 RDW 12.8 Plt Count 296 Seg Neutrophils % 58.7 Lymphocytes % 28.4 Monocytes % 9.9 Eosinophils % 2.6 Basophils % 0.4 Absolute Neutrophils 5.4 Absolute Lymphocytes 2.6 Absolute Monocytes 0.9 Absolute Eosinophils 0.2 Absolute Basophils 0.0 Sodium 142.0 Potassium 4.4 Chloride 104 Carbon Dioxide 24 Anion Gap 14 BUN 14 Creatinine 0.86 Est GFR ( Amer) > 60 Est GFR (Non-Af Amer) > 60 Glucose 96 Calcium 10.0 Magnesium 1.8 Total Bilirubin 0.5 Direct Bilirubin 0.2 Neonat Total Bilirubin Not Reportable Neonat Direct Bilirubin Not Reportable Neonat Indirect Bili Not Reportable AST 46 ALT 76 H Alkaline Phosphatase 122 Creatine Kinase 74 Total Protein 7.6 Albumin 4.3 - Laboratory Result Diagrams: 09/29/18 18:36 09/29/18 18:36 Laboratory results interpreted by me: 09/29/18 18:36 ALT 76 H - EKG Interpretation by Me Additional EKG results interpreted by me: EKG demonstrates sinus rhythm with a ventricular rate of 89 bpm, normal axis, normal intervals, there is a nonspecific T wave inversion in lead III, no ST changes, this is compared with prior EKG from 05/14/2017, without significant change. Discharge - Discharge Clinical Impression: Seizure Condition: Stable Disposition: HOME, SELF-CARE Instructions: Seizure, Known Epileptic ([facility]) Additional Instructions: Please return to the emergency department if you have any worsening, or concern of your symptoms. Please return to the emergency department if you develop chest pain, difficulty breathing, severe abdominal pain, or ongoing vomiting. Please follow-up with your primary care physician in 2-3 days and any other recommended physicians. If prescribed, take all medications as directed. If you have any questions or concerns do not hesitate to return the emergency department for evaluation. Please take medication as prescribed, caser in should be calling to help follow-up, I did give you 2 referrals to the local clinics as well. Prescriptions: Levetiracetam [Keppra 500 mg Tablet] 500 mg PO Q12 #30 tablet Referrals: [facility] [Provider Group] - Follow up tomorrow [facility] [Provider Group] - Follow up tomorrow
[2018-09-29] MEDS ORDERED: LEVETIRACETAM 1000 MG/NACL-ISO 1,000 MG/100 ML RTUPB IV ONE (19:09)
[2018-09-29] MEDS ORDERED: NORMAL SALINE 1000 ML 1,000 ML IV ONE (19:09)
[2018-09-29 19:21] LABS: ABSOLUTE EOSINOPHILS # (AUTO) 0.2 10^3/uL (0.0-0.6); ABSOLUTE LYMPHOCYTES (AUTO) 2.6 10^3/uL (0.5-4.7); ABSOLUTE MONOCYTES (AUTO) 0.9 10^3/uL (0.1-1.4); ABSOLUTE NEUT (AUTO) 5.4 10^3/uL (1.7-8.2); BASOPHILS % (AUTO) 0.4 % (0-2); EOSINOPHILS % (AUTO) 2.6 % (0-6); HEMATOCRIT 42.6 % (37.9-51.0); HEMOGLOBIN 15.2 g/dL (13.5-17.0); LYMPHOCYTES % (AUTO) 28.4 % (13-45); MEAN CORPUSCULAR HGB CONC 35.8 g/dL (32.0-36.0); MEAN CORPUSCULAR VOLUME 89 fl (80-97); MONOCYTES % (AUTO) 9.9 % (3-13); PLATELET COUNT 296 10^3/uL (150-450); RED BLOOD COUNT 4.76 10^6/uL (4.35-5.55); RED CELL DISTRIBUTION WIDTH 12.8 % (11.5-14.0); SEGMENTED NEUTROPHILS % (AUTO) 58.7 % (42-78); TOTAL CELLS COUNTED % (AUTO) 100 %; WHITE BLOOD COUNT 9.3 10^3/uL (4.0-10.5)
[2018-09-29 19:25] LABS: ALANINE AMINOTRANSFERASE 76 U/L (21-72); ALBUMIN 4.3 g/dL (3.5-5.0); ALKALINE PHOSPHATASE 122 U/L (38-126); ANION GAP 14 (5-19); ASPARTATE AMINO TRANSFERASE 46 U/L (17-59); BILIRUBIN,DIRECT 0.2 mg/dL (0.0-0.4); BILIRUBIN,TOTAL 0.5 mg/dL (0.2-1.3); BLOOD UREA NITROGEN 14 mg/dL (7-20); CARBON DIOXIDE 24 mmol/L (22-30); CHLORIDE 104 mmol/L (98-107); CREATINE KINASE 74 U/L (55-170); GLUCOSE 96 mg/dL (75-110); POTASSIUM 4.4 mmol/L (3.6-5.0); TOTAL PROTEIN 7.6 g/dL (6.3-8.2)
[2018-09-29 20:21] VITALS: BP 141/98
--- NOTE | 2018-09-30 07:34 | EKG REPORT ---
SEVERITY:- BORDERLINE ECG - SINUS RHYTHM NONSPECIFIC ST-T CHANGES- INFERIOR LEADS : Confirmed by: Quoc Caba MD 30-Sep-2018 07:33:40
== END 2018-09-29 20:26 | disposition home or self-care (01) ==
LOC: ER 18:30
DX: R56.9 Unspecified convulsions (principal); I10 Essential (primary) hypertension; F17.210 Nicotine dependence, cigarettes, uncomplicated
CPT/HCPCS: 93005; 99284; 96374; 36415; 82962; 82550; 83735; 85025; 80053; 93010; J7030; J1953

== ENCOUNTER 2019-08-01 18:47 | Emergency (ER) | payer MEDICAID ==
[2019-08-01] MEDS ORDERED: EPINEPHRINE INJ/PF 1 MG/1 ML AMPULE ONE (18:51)
[2019-08-01] MEDS ORDERED: METHYLPREDNISOLONE INJ 125 MG/2 ML SDV ONE (18:52)
[2019-08-01] MEDS ORDERED: FAMOTIDINE INJ/PF 20 MG/2 ML SDV IV ONE (18:53)
[2019-08-01] MEDS ORDERED: DIPHENHYDRAMINE HCL 50 MG/ML VIAL ONE (18:53)
[2019-08-01] MEDS ORDERED: BENZOCAINE 20% AEROSOL SPRAY 60 GM TP ONE (19:14)
[2019-08-01] MEDS ORDERED: RACEPINEPHRINE HCL 2.25% NEB 0.5 ML AMPUL NEB ONE (19:15)
[2019-08-01 19:42] LABS: ABSOLUTE EOSINOPHILS # (AUTO) 0.1 10^3/uL (0.0-0.6); ABSOLUTE LYMPHOCYTES (AUTO) 2.4 10^3/uL (0.5-4.7); ABSOLUTE MONOCYTES (AUTO) 0.8 10^3/uL (0.1-1.4); ABSOLUTE NEUT (AUTO) 4.6 10^3/uL (1.7-8.2); BASOPHILS % (AUTO) 0.4 % (0-2); EOSINOPHILS % (AUTO) 1.2 % (0-6); HEMATOCRIT 43.2 % (37.9-51.0); HEMOGLOBIN 15.2 g/dL (13.5-17.0); LYMPHOCYTES % (AUTO) 30.5 % (13-45); MEAN CORPUSCULAR HGB CONC 35.1 g/dL (32.0-36.0); MEAN CORPUSCULAR VOLUME 88 fl (80-97); MONOCYTES % (AUTO) 9.5 % (3-13); PLATELET COUNT 296 10^3/uL (150-450); RED BLOOD COUNT 4.89 10^6/uL (4.35-5.55); RED CELL DISTRIBUTION WIDTH 12.9 % (11.5-14.0); SEGMENTED NEUTROPHILS % (AUTO) 58.4 % (42-78); TOTAL CELLS COUNTED % (AUTO) 100 %; WHITE BLOOD COUNT 7.9 10^3/uL (4.0-10.5)
[2019-08-01 20:02] LABS: ALBUMIN 4.7 g/dL (3.5-5.0); ALKALINE PHOSPHATASE 108 U/L (38-126); ANION GAP 14 (5-19); ASPARTATE AMINO TRANSFERASE 40 U/L (17-59); BILIRUBIN,DIRECT 0.3 mg/dL (0.0-0.4); BILIRUBIN,TOTAL 0.6 mg/dL (0.2-1.3); BLOOD UREA NITROGEN 14 mg/dL (7-20); CALCIUM 10.4 mg/dL (8.4-10.2); CARBON DIOXIDE 22 mmol/L (22-30); CHLORIDE 104 mmol/L (98-107); GLUCOSE 90 mg/dL (75-110); POTASSIUM 3.8 mmol/L (3.6-5.0)
--- NOTE | 2019-08-01 20:49 | RADIOLOGY REPORT (SQ) ---
EXAM DESCRIPTION: CT HEAD WITHOUT IV CONTRAST COMPLETED DATE/TME: 08/01/2019 19:24 CLINICAL HISTORY: 29 years, Male, left facial droop COMPARISON: Prior CT head from 06/07/2014 TECHNIQUE: Noncontrast CT of the head was performed. Coronal and sagittal reformations were created. Images stored on PACS. All CT scanners at this facility use dose modulation, iterative reconstruction, and/or weight based dosing when appropriate to reduce radiation dose to as low as reasonably achievable (ALARA). [facility]: Dose Right [facility]: CareDose [facility]: Dose Right [facility]: Teradose 4D [facility]: Preventice LIMITATIONS: None. FINDINGS: Brain parenchyma is normal in attenuation. No acute intracranial hemorrhage, mass effect, or extra-axial fluid is seen. The ventricles, sulci, and basilar cisterns are normal in size and configuration. Globes and orbits are normal. Paranasal sinuses and mastoid air cells are clear. There are no depressed skull fractures. IMPRESSION: No acute intracranial abnormality. TECHNICAL DOCUMENTATION: Quality ID # [id number]: Final reports with documentation of one or more dose reduction techniques (e.g., Automated exposure control, adjustment of the mA and/or kV according to patient size, use of iterative reconstruction technique) copyright 2010 [employer]- All Rights Reserved
--- NOTE | 2019-08-01 21:39 | ER Document Report ---
ED General - General Chief Complaint: Swelling of Tongue Stated Complaint: TONGUE SWELLING Time Seen by Provider: 08/01/19 19:24 Mode of Arrival: Ambulatory Information source: Patient TRAVEL OUTSIDE OF THE [place] IN LAST 30 DAYS: No - HPI Notes: Patient states that he is having trouble swallowing breathing and his tongue feels swollen. He also states that he is having trouble talking. This started roughly 30 minutes before arrival. Patient denies smoking or inhaling any type of substance. No new medicines. No previous history of similar reactions. Patient does not take any type of medications for high blood pressure. Patient has no history of TIAs or strokes. Symptoms are constant. They are moderate to severe. Nothing makes it better or worse. There is no radiation of the symptoms. No rashes. - Related Data Allergies/Adverse Reactions: No Known Allergies Allergy (Verified 08/01/19 18:48) Past Medical History - General Information source: Patient - Social History Smoking Status: Current Some Day Smoker Chew tobacco use (# tins/day): No Frequency of alcohol use: None Drug Abuse: Marijuana Family History: Reviewed & Not Pertinent Patient has suicidal ideation: No Patient has homicidal ideation: No - Past Medical History Cardiac Medical History: Reports: Hx Hypertension Neurological Medical History: Reports: Hx Seizures Renal/ Medical History: Denies: Hx Peritoneal Dialysis Psychiatric Medical History: Reports: Hx Attention Deficit Hyperactivity Disorder, Hx Bipolar Disorder, Hx Depression - Immunizations Immunizations up to date: Yes Hx Diphtheria, Pertussis, Tetanus Vaccination: Yes - LAST DOSE AT AGE 19 Y.O. Review of Systems - Review of Systems Constitutional: denies: Chills, Fever Cardiovascular: denies: Chest pain, Palpitations Respiratory: Short of breath. denies: Cough Gastrointestinal: denies: Diarrhea, Vomiting -: Yes All other systems reviewed and negative Physical Exam - Vital signs Interpretation: Tachycardic - General General appearance: Appears well, Alert In distress: None - HEENT Head: Normocephalic, Atraumatic Eyes: Normal Pupils: PERRL Mouth/Lips: Normal Mucous membranes: Normal Pharynx: Other - Patient has some mild hypertrophy of the uvula but all other posterior pharyngeal structures are unremarkable. Patient was anesthetized with Hurricaine spray. Anesthesia then used a glide scope to view the posterior structures. Patient's vocal cords epiglottis and subglottic structures were all unremarkable and without evidence of swelling or abnormality. - Respiratory Respiratory status: No respiratory distress Chest status: Nontender Breath sounds: Normal Chest palpation: Normal - Cardiovascular Rhythm: Tachycardia Heart sounds: Normal auscultation Murmur: No - Abdominal Inspection: Normal Distension: No distension Bowel sounds: Normal Tenderness: Nontender Organomegaly: No organomegaly - Back Back: Normal, Nontender - Extremities General upper extremity: Normal inspection, Nontender, Normal color, Normal ROM, Normal temperature General lower extremity: Normal inspection, Nontender, Normal color, Normal ROM, Normal temperature, Normal weight bearing. No: Eugenio's sign - Neurological Neuro grossly intact: Yes Cognition: Normal Orientation: AAOx4 Td Coma Scale Eye Opening: Spontaneous [place] Coma Scale Verbal: Oriented [place] Coma Scale Motor: Obeys Commands Td Coma Scale Total: 15 Speech: Normal Motor strength normal: LUE, RUE, LLE, RLE Sensory: Normal - Psychological Associated symptoms: Normal affect, Normal mood - Skin Skin Temperature: Warm Skin Moisture: Dry Skin Color: Normal Course - Re-evaluation Re-evalutation: 08/01/19 21:36 Patient reevaluated just now. He has no evidence of swelling. His voice is now normal. He is no longer tachycardic. He states he feels back to baseline. Patient's presentation does not seem consistent with a TIA or cerebrovascular occlusion or embolus. This did discuss patient's main complaint was feeling that the posterior structures were swollen that his tongue was painful. There is no evidence of allergic reaction. Patient does have a history of seizures and possibly this was a form of partial seizure. There is no other evidence that there is any infectious cause. At this time I feel the most prudent course is to discharge the patient home to follow-up with his primary care physician. 08/01/19 21:37 - Laboratory Result Diagrams: 08/01/19 19:15 08/01/19 19:15 Laboratory results interpreted by me: 08/01/19 19:15 Calcium 10.4 H - Diagnostic Test Radiology reviewed: Image reviewed, Reports reviewed Discharge - Discharge Clinical Impression: Odynophagia Condition: Stable Disposition: HOME, SELF-CARE Additional Instructions: Please call your primary care physician first thing in the morning to arrange for a follow-up tomorrow. Forms: Return to Work Referrals: RASHEEDA CHAVEZ MD [COMMUNITY BASED STAFF] - Follow up tomorrow
[2019-08-01 22:12] VITALS: BP 145/93
== END 2019-08-01 22:10 | disposition home or self-care (01) ==
LOC: ER 18:47
DX: R13.10 Dysphagia, unspecified (principal); R47.9 Unspecified speech disturbances; R06.02 Shortness of breath; R00.0 Tachycardia, unspecified; I10 Essential (primary) hypertension; F17.200 Nicotine dependence, unspecified, uncomplicated
CPT/HCPCS: 36415; 82962; 85025; 80053; 70450; J3490; J1200; J0171; J2930; S0028; 99284